=== PATIENT | male | born 1930 | race Caucasian/White ===

== ENCOUNTER 2017-01-14 15:35 | Inpatient (IN) ==
[2017-01-14] MEDS ORDERED: ZOFRAN IV PRN (17:30)
[2017-01-14 18:13] LABS: HEMATOCRIT 40.4 % (42.0-52.0); HEMOGLOBIN 13.4 g/dL (14.0-18.0); MCH 29.5 PG (27-31); MCHC 33.2 g/dL (33-37); MCV 88.8 FL (81-99); MPV 10.1 FL (7.4-10.4); RBC 4.55 XMIL (4.7-6.1)
[2017-01-14] MEDS: ROCEPHIN 1 GM/NS 1 GM/50 ML IVPB IV SCH (18:14)
[2017-01-14] MEDS: NS 1,000 ML IV SCH (18:14)
[2017-01-14 18:35] LABS: ALBUMIN 3.4 g/dL (3.5-5.0); CALCIUM 9.4 mg/dL (8.8-10.2); POTASSIUM 3.6 mmol/L (3.5-5.1); TOTAL BILIRUBIN 0.4 mg/dL (0.20-1.00); TOTAL PROTEIN 7.1 g/dL (6.3-8.3)
[2017-01-14] MEDS: ARICEPT PO SCH (20:42)
[2017-01-14] MEDS: SEROQUEL PO SCH (20:43)
[2017-01-14 22:32] LABS: URINE CULTURE PL NEEDED? NO
[2017-01-14 22:34] LABS: BILIRUBIN URINE NEGATIVE (NEGATIVE); BLOOD URINE NEGATIVE (NEGATIVE); CLARITY CLEAR (CLEAR); COLOR YELLOW; GLUCOSE URINE NEGATIVE (NEGATIVE); LEUKOCYTES URINE NEGATIVE (NEGATIVE); NITRITE URINE NEGATIVE (NEGATIVE); PH URINE 6.5; PROTEIN URINE NEGATIVE (NEGATIVE); SP GRAVITY URINE 1.005; UROBILINOGEN URINE 1+(1 mg/dL)
[2017-01-14 22:35] LABS: URINE SOURCE CLEAN CATCH
[2017-01-14 22:54] LABS: URINE EPITHELIAL CELLS <10 /HPF (<10); URINE RBC <10 /HPF (<10); URINE WBC <10 /HPF (<10)
[2017-01-15] MEDS: PRILOSEC PO SCH (06:05)
[2017-01-15] MEDS: NS 1,000 ML IV SCH ×2 (06:06→19:30)
[2017-01-15 06:45] LABS: HEMATOCRIT 40.3 % (42.0-52.0); HEMOGLOBIN 13.5 g/dL (14.0-18.0); MCH 29.9 PG (27-31); MCHC 33.5 g/dL (33-37); MCV 89.4 FL (81-99); MPV 10.2 FL (7.4-10.4); RBC 4.51 XMIL (4.7-6.1)
[2017-01-15 06:52] LABS: AGAP 11; ALKALINE PHOSPHATASE 69 U/L (32-122); BUN 19 mg/dL (8-22); CALCIUM 9.3 mg/dL (8.8-10.2); CHLORIDE 103 mmol/L (98-107); COSMO 280; GOT 14 U/L (10-34); GPT 8 U/L (10-44); MAGNESIUM 1.9 mg/dL (1.5-2.7); POTASSIUM 3.5 mmol/L (3.5-5.1); SODIUM 139 mmol/L (136-145); TCO2 25 mmol/L (25-35); TOTAL PROTEIN 6.7 g/dL (6.3-8.3)
--- NOTE | 2017-01-15 07:17 | Diag Imaging Result Doc PS360 ---
EXAM: CHEST-PORTABLE HISTORY: short of breath TECHNIQUE: Erect AP portable at 0603 COMMENT: The inspiration is suboptimal. There is atelectasis or pneumonia in the right lower lobe. There are no previous studies. The heart size is at the upper limits of normal. There is fluid or fibrosis in the right costophrenic sulcus. There is a calcified granuloma in the right upper lobe. 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 IMPRESSION: Atelectasis versus pneumonia right lower lobe with pleural fibrosis versus loculated effusion on the right. Advise comparison with previous studies and follow-up if indicated. Electronically signed by Mario Hart 01/15/2017 7:15 AM
[2017-01-15] MEDS: VASOTEC PO SCH (08:50)
[2017-01-15] MEDS: CELEXA PO SCH (08:50)
[2017-01-15] MEDS: DOXYCYCLINE PO SCH ×2 (08:50→22:16)
[2017-01-15] MEDS: ASPIRIN EC PO SCH (08:50)
[2017-01-15] MEDS: LASIX PO SCH (08:50)
--- NOTE | 2017-01-15 11:39 | PROGRESS NOTE ---
DATE: 01/15/2017 SUBJECTIVE: Patient without any changes. PHYSICAL: Temp 98 degrees, pulse 57, respiratory rate 18, BP 149/68, sat 98% on room air.General: Patient is awake, alert. He is disoriented. He is pleasant in nature. He is in no respiratory distress. Neck: Supple. CV: Regular rate. Chest: Decreased breath sounds but equal. Abdomen: Soft. Extremities: Moves all extremities. Trace edema. DIAGNOSTIC DATA: Hemoglobin and hematocrit 13 and 40. Creatinine 1.1. Albumin 3.0. ASSESSMENT: 1. Mild protein calorie malnutrition. 2. Acute renal failure resolved. 3. Abnormal chest x-ray. Certainly could be pneumonia given his current clinical symptoms. We will continue Rocephin. 4. Metabolic encephalopathy appears improving. 5. Urinary tract infection. For some reason, lab cancelled his UA. Will continue Rocephin to treat his pneumonia as well as UTI. PLAN: We will add doxycycline in addition to the Rocephin to attempt to treat his current pneumonia. We will continue physical therapy. Discussed with the at this point I certainly expect he is going to need wound therapy to assist with his decubitus ulcers and probably rehab as well. She agrees and wishes to look for a place near [place] which would be care home between her and his children. cc: Dallas Castillo MD
--- NOTE | 2017-01-15 13:53 | HISTORY AND PHYSICAL ---
CHIEF COMPLAINT: Altered mental status. HISTORY OF PRESENT ILLNESS: The patient is an 86-year-old male, who has a known history of Alzheimer's type dementia. His has been attempting to care for him at home but this has become more difficult as of late. She notes he is having increased falling, increased cough and shortness of breath, increased dyspnea on exertion. He has had a decreased oral intake. She notes that he has had some pressure ulcers on his buttocks. He has not been drinking very well. Has had a decreased urination. REVIEW OF SYSTEMS: Unobtainable, given Mr. Jamilah milian. PAST MEDICAL HISTORY: 1. Alzheimer's type dementia. 2. Situational depression, secondary to dementia. 3. Hypertension. 4. Chronic reflux. FAMILY HISTORY: Noncontributory. SOCIAL HISTORY: Patient lives at home. 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 Does not smoke or drink. He is . His children live in the [facility], [place]. ALLERGIES: No known drug allergies. MEDICATIONS: 1. Aspirin. 2. Aricept 10. 3. Celexa 20. 4. Prilosec 20. 5. Toprol 25. 6. Lasix 40. 7. Enalapril 20. 8. Klonopin 0.5 b.i.d. p.r.n. PHYSICAL EXAMINATION: VITAL SIGNS: Temperature 98.6, pulse 72, respiratory rate 18, blood pressure 101/43, sat 98% on room air. GENERAL: Patient is awake, alert. He is disoriented to time, person, and place. HEENT: Normocephalic, atraumatic. Pupils equal, round, and reactive to light and accommodation. NECK: Supple. CARDIOVASCULAR: Regular rate. CHEST: Clear, but decreased breath sounds bilaterally. Poor effort. No appreciable wheezes. No appreciable crackles. ABDOMEN: Soft, obese, nondistended. EXTREMITIES: Moves all extremities. NEUROLOGIC: No changes. LABS: Hemoglobin and hematocrit 13 and 40. Creatinine 1.4. Albumin 3.4. ASSESSMENT: 1. Acute renal failure. Patient's baseline creatinine is around 1. He is currently at 1.4. 2. Volume depletion. Patient has had a decreased oral intake. 3. Acute metabolic encephalopathy. Certainly may be secondary to his volume depletion or to a urinary tract infection. We will treat him for urinary tract infection and follow. 4. Shortness of breath with dyspnea on exertion. Certainly concerned that patient may have an early pneumonia. 5. Decubitus ulcers of various stages of healing on his buttocks. 6. Frequent falls. 7. Alzheimer's type dementia. 8. Hypertension. Will hold patient's Toprol, as this certainly could be increasing his risk of falls. 9. Situational depression. We will continue Celexa for now. We will stop Ativan and follow. PLAN: As noted above. We will admit patient to the hospital. Get physical therapy involved. We will place him on Rocephin and continue to follow. cc: Dallas Castillo MD
[2017-01-15] MEDS: ROCEPHIN 1 GM/NS 1 GM/50 ML IVPB IV SCH (17:19)
[2017-01-15] MEDS: SEROQUEL PO SCH (22:16)
[2017-01-15] MEDS: ARICEPT PO SCH (22:17)
[2017-01-16] MEDS: TYLENOL PO PRN ×2 (00:44→21:52)
[2017-01-16] MEDS: PRILOSEC PO SCH (06:20)
[2017-01-16] MEDS: VASOTEC PO SCH (08:23)
[2017-01-16] MEDS: DOXYCYCLINE PO SCH ×2 (08:23→21:52)
[2017-01-16] MEDS: LASIX PO SCH (08:24)
[2017-01-16] MEDS: NS 1,000 ML IV SCH ×2 (08:24→11:20)
[2017-01-16] MEDS: CELEXA PO SCH (08:24)
[2017-01-16] MEDS: ASPIRIN EC PO SCH (08:24)
[2017-01-16] MEDS: ROCEPHIN 1 GM/NS 1 GM/50 ML IVPB IV SCH (17:40)
[2017-01-16] MEDS: SEROQUEL PO SCH (21:52)
[2017-01-16] MEDS: ARICEPT PO SCH (21:52)
[2017-01-17] MEDS: NS 1,000 ML IV SCH (05:08)
[2017-01-17] MEDS: PRILOSEC PO SCH (06:34)
[2017-01-17] MEDS: VASOTEC PO SCH (09:34)
[2017-01-17] MEDS: LASIX PO SCH (09:34)
[2017-01-17] MEDS: ASPIRIN EC PO SCH (09:34)
[2017-01-17] MEDS: DOXYCYCLINE PO SCH ×2 (09:34→21:15)
[2017-01-17] MEDS: CELEXA PO SCH (09:34)
--- NOTE | 2017-01-17 10:05 | Diag Imaging Result Doc PS360 ---
EXAM: CHEST-2 VIEWS INDICATION: hypoxia TECHNIQUE: 2 views COMPARISON: 01/15/2017 FINDINGS: The atelectasis and/or infiltrate at the right lung base is essentially unchanged. There is a small pleural effusion versus chronic pleural scarring at the right lung base that is also essentially stable. No new consolidation is appreciated. Cardiac silhouette is stable. IMPRESSION: Essentially stable chest. Electronically signed by George Resendez 01/17/2017 10:03 AM
[2017-01-17] MEDS: OMNICEF PO SCH ×2 (10:35→21:15)
--- NOTE | 2017-01-17 12:02 | PROGRESS NOTE ---
DATE: 01/16/2017 SUBJECTIVE: The patient is without complaints. He is lying in bed. He denies any current issues. OBJECTIVE: Vital Signs: On physical, temp 97.6, pulse 60, respiratory rate 18, BP 133/59, satting 96% on room air. General: The patient is awake, alert. He is currently in no respiratory distress. He is pleasant to talk with. He is confused. HEENT: Normocephalic, atraumatic. Neck: Supple. CV: Regular rate. Chest: Clear, nonlabored. Abdomen: Soft. Extremities: Moves all extremities. LABS: No current labs. ASSESSMENT: 1. Acute renal failure secondary to volume depletion, resolved. 2. Volume depletion, resolved. 3. Decubitus ulcers, improved. We will continue wound therapy. 4. Pneumonia appears improving. Will continue current antibiotics. PLAN: As noted we will continue his current antibiotics for his pneumonia. We will continue IV fluids. We will continue to follow. Certainly expect that he will need rehabilitation. We will continue wound therapy for his decubitus ulcers and continue to encourage p.o. cc: Dallas Castillo MD
--- NOTE | 2017-01-17 12:12 | PROGRESS NOTE ---
DATE: 01/17/2017 SUBJECTIVE: The patient is without any new complaints. He is getting ready to breakfast. He is sitting in the chair. He is in no distress. OBJECTIVE: Vital Signs: Reviewed. Temperature 97.6 degrees, pulse 66, respiratory rate 18, BP 133/59, satting 96% on room air. General: The patient is awake and alert. He is disoriented, but pleasant to talk with. HEENT: Normocephalic, atraumatic. RAJAT. Neck: Supple. CV: Regular rate. Chest: Clear. Abdomen: Soft. Extremities: Moves all extremities. Neurologic: No changes. LABS: No current labs. ASSESSMENT: 1. Volume depletion, resolved. 2. Acute renal failure, resolved. 3. Decubitus ulcer, stable. 4. Right lower lobe pneumonia. We will convert to Omnicef and doxycycline oral. 5. Chronic dementia, stable. PLAN: We will recheck chest x-ray. Saline lock. Change him over to p.o. antibiotics. Continue his home medications. Recheck his labs in the a.m. Continue physical therapy and await rehabilitation as patient is unsafe to discharge home. cc: Dallas Castillo MD
[2017-01-17] MEDS: SEROQUEL PO SCH (21:15)
[2017-01-17] MEDS: ARICEPT PO SCH (21:15)
[2017-01-18] MEDS: TYLENOL PO PRN ×3 (02:59→21:53)
[2017-01-18 06:13] LABS: HEMATOCRIT 36.4 % (42.0-52.0); HEMOGLOBIN 12.1 g/dL (14.0-18.0); MCH 29.1 PG (27-31); MCHC 33.2 g/dL (33-37); MCV 87.5 FL (81-99); MPV 10.3 FL (7.4-10.4); RBC 4.16 XMIL (4.7-6.1)
[2017-01-18] MEDS: PRILOSEC PO SCH (06:21)
[2017-01-18 06:31] LABS: AGAP 10; ALBUMIN 2.9 g/dL (3.5-5.0); ALKALINE PHOSPHATASE 75 U/L (32-122); BUN 21 mg/dL (8-22); CHLORIDE 103 mmol/L (98-107); COSMO 281; GOT 13 U/L (10-34); GPT 9 U/L (10-44); MAGNESIUM 1.5 mg/dL (1.5-2.7); POTASSIUM 3.4 mmol/L (3.5-5.1); SODIUM 139 mmol/L (136-145); TCO2 27 mmol/L (25-35); TOTAL PROTEIN 6.3 g/dL (6.3-8.3)
[2017-01-18] MEDS: OMNICEF PO SCH ×2 (09:34→21:53)
[2017-01-18] MEDS: DOXYCYCLINE PO SCH ×2 (09:34→21:53)
[2017-01-18] MEDS: ASPIRIN EC PO SCH (09:35)
[2017-01-18] MEDS: VASOTEC PO SCH (09:35)
[2017-01-18] MEDS: LASIX PO SCH (09:35)
[2017-01-18] MEDS: CELEXA PO SCH (09:35)
--- NOTE | 2017-01-18 15:37 | PROGRESS NOTE ---
DATE: 01/18/2017 SUBJECTIVE: Patient without complaints. Notes that he is still tired but has difficulty getting up on his own. He is lying in the bed. He spends most of the day in the bed. PHYSICAL: Temp 98.3 degrees, pulse 78, respiratory rate 18, BP 123/46.General: Patient is awake, alert, currently in no respiratory distress. Pleasant to talk with. He is easily confused and disoriented. HEENT: Normocephalic, atraumatic. RAJAT. Neck: Supple. CV: Regular rate. Chest: Clear. ASSESSMENT: 1. Acute metabolic encephalopathy resolved. 2. Acute volume depletion resolved. 3. Dementia. 4. Hypertension. 5. Pneumonia. 6. Adult failure to thrive. PLAN: We will convert over to p.o. antibiotics. Patient is currently improved. We will continue physical therapy. He certainly will need rehab. Hopefully his right lower lobe pneumonia will continue to improve with antibiotics. cc: Dallas Castillo MD
[2017-01-18] MEDS: ARICEPT PO SCH (21:53)
[2017-01-18] MEDS: SEROQUEL PO SCH (21:53)
[2017-01-19] MEDS: PRILOSEC PO SCH (06:18)
[2017-01-19] MEDS: ASPIRIN EC PO SCH (09:24)
[2017-01-19] MEDS: LASIX PO SCH (09:24)
[2017-01-19] MEDS: VASOTEC PO SCH (09:24)
[2017-01-19] MEDS: DOXYCYCLINE PO SCH ×2 (09:24→21:27)
[2017-01-19] MEDS: CELEXA PO SCH (09:24)
[2017-01-19] MEDS: OMNICEF PO SCH ×2 (09:24→21:28)
--- NOTE | 2017-01-19 15:19 | PROGRESS NOTE ---
DATE: 01/19/2017 SUBJECTIVE: Patient without any new complaints. PHYSICAL: Vital signs: Temperature 98, pulse 69, respiratory rate 18, BP 148/75, saturation 96% on room air. General: Patient is awake, alert, currently no respiratory distress. He is oriented to person but otherwise disoriented. HEENT: Normocephalic, atraumatic. Neck: Supple. CV: Regular rate. Chest: Clear. Abdomen: Soft. LABS: No current labs. ASSESSMENT: 1. Acute metabolic encephalopathy resolved. Patient is his baseline mental status. 2. Dementia. 3. Hypertension. 4. Pneumonia improving. 5. Adult failure to thrive. PLAN: Will continue patient on his current medications. Will convert to p.o. and plans of him discharging to rehab when available. cc: Dallas Castillo MD
[2017-01-19] MEDS: TYLENOL PO PRN (21:27)
[2017-01-19] MEDS: SEROQUEL PO SCH (21:27)
[2017-01-19] MEDS: ARICEPT PO SCH (21:27)
[2017-01-20] MEDS: PRILOSEC PO SCH (06:22)
[2017-01-20] MEDS: ASPIRIN EC PO SCH (09:26)
[2017-01-20] MEDS: DOXYCYCLINE PO SCH ×2 (09:26→20:42)
[2017-01-20] MEDS: CELEXA PO SCH (09:26)
[2017-01-20] MEDS: LASIX PO SCH (09:27)
[2017-01-20] MEDS: VASOTEC PO SCH (09:27)
[2017-01-20] MEDS: OMNICEF PO SCH ×2 (09:27→20:42)
[2017-01-20] MEDS: SEROQUEL PO SCH (20:42)
[2017-01-20] MEDS: TYLENOL PO PRN (20:42)
[2017-01-20] MEDS: ARICEPT PO SCH (20:42)
[2017-01-21] MEDS: PRILOSEC PO SCH (06:32)
[2017-01-21] MEDS: VASOTEC PO SCH (09:32)
[2017-01-21] MEDS: LASIX PO SCH (09:32)
[2017-01-21] MEDS: ASPIRIN EC PO SCH (09:33)
[2017-01-21] MEDS: DOXYCYCLINE PO SCH ×3 (09:33→22:50)
[2017-01-21] MEDS: CELEXA PO SCH (09:33)
[2017-01-21] MEDS: OMNICEF PO SCH ×3 (09:33→22:50)
--- NOTE | 2017-01-21 09:51 | DISCHARGE SUMMARY ---
ADMISSION DATE: 01/14/2017 DISCHARGE DATE: 01/20/2017 DISCHARGE DIAGNOSES: 1. Acute metabolic encephalopathy, resolved, secondary to pneumonia. 2. Pneumonia, improving. 3. Adult failure to thrive. 4. Hypertension. 5. Dementia. 6. Situational depression. 7. Chronic reflux. 8. Decubitus ulcers in various stages of healing on his buttocks bilaterally. 9. Frequent falls. CONSULTATIONS: None. PROCEDURES: None. BRIEF HOSPITAL COURSE: Patient is an 86-year-old male, who has a known history of dementia, presented to the office and subsequently admitted secondary to pneumonia. Was placed on antibiotics which he tolerated well. On discharge, he is awake, alert. He is disoriented but at his baseline. His mental status has improved somewhat as he was confused when he was initially admitted. After treating his pneumonia with IV antibiotics the confusion returned back to his baseline. Currently is on p.o. antibiotics and is doing well. DISPOSITION: The patient will be discharged to rehab. Certainly he is becoming a danger to himself and too much for his elderly to be able to handle at home. We will continue his medications as noted. We will continue antibiotics for a total of 4 more days. Further orders as needed. TIME SPENT: 35 minutes were spent in discharge planning. cc: Dallas Castillo MD
--- NOTE | 2017-01-21 11:41 | PROGRESS NOTE ---
DATE: 01/21/2017 SUBJECTIVE: Patient without any new complaints. OBJECTIVE: Physical Examination: Vital Signs: Temperature 97, pulse 84, respiratory rate 16, BP 141/61, saturation 96% on room air. General: Patient is awake, alert. He is disoriented but he is in no respiratory distress. Neck: Supple. CV: Regular rate. Chest: Clear. Abdomen: Soft. Labs: No current labs. ASSESSMENT: 1. Dementia. 2. Adult failure to thrive. 3. Pneumonia, improving. 4. Others. PLAN: We will continue to keep patient in the hospital until he can be transferred to rehab. cc: Dallas Castillo MD
[2017-01-21] MEDS: SEROQUEL PO SCH ×2 (19:53→22:50)
[2017-01-21] MEDS: ARICEPT PO SCH ×2 (19:54→22:50)
[2017-01-22] MEDS: PRILOSEC PO SCH (06:12)
[2017-01-22] MEDS: DOXYCYCLINE PO SCH ×2 (08:16→20:47)
[2017-01-22] MEDS: LASIX PO SCH (08:16)
[2017-01-22] MEDS: CELEXA PO SCH (08:16)
[2017-01-22] MEDS: OMNICEF PO SCH ×2 (08:16→20:45)
[2017-01-22] MEDS: ASPIRIN EC PO SCH (08:16)
[2017-01-22] MEDS: VASOTEC PO SCH (08:17)
[2017-01-22] MEDS: SEROQUEL PO SCH (20:45)
[2017-01-22] MEDS: ARICEPT PO SCH (20:45)
[2017-01-23] MEDS: TYLENOL PO PRN (01:34)
[2017-01-23] MEDS: PRILOSEC PO SCH (06:45)
[2017-01-23] MEDS: ASPIRIN EC PO SCH (08:08)
[2017-01-23] MEDS: OMNICEF PO SCH ×2 (08:08→20:49)
[2017-01-23] MEDS: DOXYCYCLINE PO SCH ×2 (08:08→20:50)
[2017-01-23] MEDS: CELEXA PO SCH (08:08)
[2017-01-23] MEDS: VASOTEC PO SCH (08:09)
[2017-01-23] MEDS: LASIX PO SCH (08:12)
--- NOTE | 2017-01-23 09:48 | PROGRESS NOTE ---
DATE: 01/23/2017 SUBJECTIVE: The patient is lying flat on the bed. He is in no distress. PHYSICAL EXAMINATION: Vital Signs: Reviewed. Temperature 98 degrees, pulse 67, respiratory 16, BP 126/052 to 147/65, oxygen saturation 98% on room air. General: Patient is awake, alert. He is currently in no respiratory distress. HEENT: Normocephalic, atraumatic. RAJAT. Neck: Supple. CV: Regular rate. Chest: Clear. Abdomen: Soft. Extremities: Moves all extremities. Neurologic: No changes. ASSESSMENT: 1. Dementia, likely Alzheimer's type. 2. Acute metabolic encephalopathy secondary to pneumonia, resolved. 3. Pneumonia, improved. 4. Adult failure to thrive. 5. Hypertension, stable. PLAN: We will continue to await patient's insurance approval for rehabilitation. Further orders as needed. cc: Dallas Castillo MD
--- NOTE | 2017-01-23 10:01 | PROGRESS NOTE ---
DATE: 01/23/2017 SUBJECTIVE: Patient without any new complaints. PHYSICAL EXAMINATION: Vital Signs: Reviewed and stable. Temperature 97.5 degrees, pulse 82, respiratory rate 18, BP 111/47, oxygen saturation 98% on room air. General: Patient is awake, alert, lying flat in the bed. He is easily awakened. Neck: Supple. CV: Regular rate. Chest: Clear. Abdomen: Soft. Extremities: Moves all extremities. Neurologic: No changes. ASSESSMENT: 1. Pneumonia improving. Will change to p.o. 2. Failure to thrive. 3. Chronic dementia. 4. Others. PLAN: We will continue patient in the hospital. We will discuss with social insurance analyst the possibility of transfer to rehab. a Further orders as needed. cc: Dallas Castillo MD
[2017-01-23] MEDS: ARICEPT PO SCH (20:50)
[2017-01-23] MEDS: SEROQUEL PO SCH (21:00)
[2017-01-24] MEDS: PRILOSEC PO SCH (06:04)
[2017-01-24] MEDS: VASOTEC PO SCH (09:25)
[2017-01-24] MEDS: CELEXA PO SCH (09:26)
[2017-01-24] MEDS: ASPIRIN EC PO SCH (09:26)
[2017-01-24] MEDS: OMNICEF PO SCH ×2 (09:26→20:25)
[2017-01-24] MEDS: DOXYCYCLINE PO SCH ×2 (09:26→20:25)
[2017-01-24] MEDS: LASIX PO SCH (09:27)
--- NOTE | 2017-01-24 15:09 | PROGRESS NOTE ---
DATE: 01/24/2017 SUBJECTIVE: This patient has no complaints. He states he is feeling better today. He denies chest pain, any GI or issues. OBJECTIVE/PHYSICAL EXAMINATION: Vital Signs: Blood pressure is 119/60 with a heart rate of 69, respirations are 18, temperature is 98 degrees oral with room air saturations of 97-99%. Cardiovascular: Regular rate and rhythm. S1, S2 appreciated. Pulmonary: Breath sounds are clear. No increased work of breathing noted. Gastrointestinal: Abdomen is soft, nontender, nondistended with bowel sounds in all 4 quadrants. Extremities: No clubbing, cyanosis, or edema. Pulses are palpable x4. Calves are nontender. Neurologic: He is alert and oriented with cranial nerves 2-12 grossly intact. ASSESSMENT: 1. Pneumonia, improving. We will continue with Omnicef. 2. Failure to thrive. 3. Chronic dementia. 4. Situational depression. 5. Chronic reflux. 6. Decubitus ulcers in various stages of healing on his buttocks bilaterally. 7. Frequent falls. PLAN: We will continue with the current care. His current medical regimen. Of note, next disposition, we are awaiting insurance approval for rehab. The patient does have a bed at [facility]. Dictated by SADIE Barnhart for Dallas Castillo MD cc: SADIE Barnhart MD
[2017-01-24] MEDS: SEROQUEL PO SCH (20:25)
[2017-01-24] MEDS: ARICEPT PO SCH (20:25)
[2017-01-25] MEDS: PRILOSEC PO SCH (06:04)
[2017-01-25] MEDS: VASOTEC PO SCH (08:43)
[2017-01-25] MEDS: OMNICEF PO SCH ×2 (08:44→20:11)
[2017-01-25] MEDS: CELEXA PO SCH (08:44)
[2017-01-25] MEDS: ASPIRIN EC PO SCH (08:44)
[2017-01-25] MEDS: DOXYCYCLINE PO SCH ×2 (08:44→20:11)
[2017-01-25] MEDS: LASIX PO SCH (08:44)
--- NOTE | 2017-01-25 16:13 | PROGRESS NOTE ---
DATE: 01/25/2017 SUBJECTIVE: The patient is without any new complaints. He states that he is feeling fine. He denies any fever or chills. He denies any cough or congestion. OBJECTIVE: Vital Signs: Reviewed. Temperature 97, pulse 90-108, respiratory rate 18, and BP 138/76, and saturation 99% on room air. General: The patient is awake, alert, and currently in no respiratory distress. Pleasant to talk with. HEENT: Normocephalic. Neck: Supple. CV: Regular rate. Chest: Clear. rhonchi. No crackles. No wheezing. Abdomen: Soft. Extremities: He moves all extremities. Neuro: No changes. ASSESSMENT: 1. Acute metabolic encephalopathy, resolved. 2. Pneumonia, improving. 3. Dementia, stable. 4. Hypertension. 5. Adult failure to thrive. PLAN: We will continue to follow the patient. He will need further inpatient rehab to continue strengthening. cc: Dallas Castillo MD
[2017-01-25] MEDS ORDERED: ZOFRAN ODT PO PRN (16:57)
[2017-01-25] MEDS: LACTULOSE PO SCH (20:11)
[2017-01-25] MEDS: ARICEPT PO SCH (20:11)
[2017-01-25] MEDS: SEROQUEL PO SCH (20:11)
[2017-01-26] MEDS: PRILOSEC PO SCH (06:03)
[2017-01-26 06:42] LABS: HEMATOCRIT 45.4 % (42.0-52.0); MCH 29.1 PG (27-31); MPV 10.8 FL (7.4-10.4); RBC 5.16 XMIL (4.7-6.1)
[2017-01-26 07:17] LABS: ALBUMIN 3.3 g/dL (3.5-5.0); CALCIUM 9.7 mg/dL (8.8-10.2); MAGNESIUM 1.9 mg/dL (1.5-2.7); POTASSIUM 3.6 mmol/L (3.5-5.1); TOTAL BILIRUBIN 0.6 mg/dL (0.20-1.00); TOTAL PROTEIN 7.3 g/dL (6.3-8.3)
[2017-01-26] MEDS ORDERED: NS 1,000 ML IV SCH (07:20)
--- NOTE | 2017-01-26 08:30 | Diag Imaging Result Doc PS360 ---
EXAM: CHEST-2 VIEWS INDICATION: hypoxia TECHNIQUE: 2 views COMPARISON: 01/17/2017 FINDINGS: There is evidence of prior granulomatous disease. A small right pleural effusion versus chronic pleural thickening with adjacent atelectasis and/or infiltrate at the right lung base is essentially stable. No new consolidation is appreciated. Cardiac silhouette is stable. IMPRESSION: Stable chest. Electronically signed by George Resendez 01/26/2017 8:27 AM
[2017-01-26] MEDS: CELEXA PO SCH (09:03)
[2017-01-26] MEDS: ASPIRIN EC PO SCH (09:03)
[2017-01-26] MEDS: OMNICEF PO SCH ×2 (09:03→20:27)
[2017-01-26] MEDS: DOXYCYCLINE PO SCH ×2 (09:04→20:27)
[2017-01-26] MEDS: VASOTEC PO SCH (09:04)
[2017-01-26] MEDS: LACTULOSE PO SCH ×2 (09:08→20:28)
--- NOTE | 2017-01-26 09:57 | PROGRESS NOTE ---
DATE: 01/26/2017 SUBJECTIVE: Patient without any new complaints today. OBJECTIVE: Vital Signs: Reviewed. Temperature 98 degrees, pulse 89, respiratory rate 18, BP 117/51, saturation 97% on room air. General: Patient is awake, alert. He is in no respiratory distress. He is able to ambulate in the ye with physical therapy. HEENT: Normocephalic, atraumatic. Neck: Supple. CV: Regular rate. Chest: Clear. Abdomen: Soft. DIAGNOSTIC STUDIES: Chest x-ray improved. ASSESSMENT: 1. Acute renal failure. BUN and creatinine both have climbed. Patient has been on Lasix. We will stop this. Will not restart IV fluids at the present time but will stop his Lasix. 2. Mild protein calorie malnutrition. 3. Pneumonia, improved. 4. Adult failure to thrive. PLAN: As noted, stop Lasix. Continue to follow. Further orders as needed. Hopefully to rehab soon. cc: Dallas Castillo MD
[2017-01-26] MEDS ORDERED: SEROQUEL PO ONE (10:38)
[2017-01-26] MEDS: ARICEPT PO SCH (20:27)
[2017-01-26] MEDS: SEROQUEL PO SCH (20:28)
[2017-01-27] MEDS: PRILOSEC PO SCH (06:05)
--- NOTE | 2017-01-27 08:12 | PROGRESS NOTE ---
DATE: 01/27/2017 SUBJECTIVE: Patient without any new complaints. He is sitting up in the chair. OBJECTIVE: Vital signs: Temperature 97, pulse 70, respiratory rate 18, BP 110/57, saturating 97% on room air. General: Patient is awake, alert, in no respiratory distress. Neck: Supple. CV: Regular rate. Chest: Clear. Abdomen: Soft. Extremities: Moves all extremities. ASSESSMENT: 1. Adult failure to thrive. 2. Dementia. 3. Pneumonia, improved. 4. Mild protein calorie malnutrition. 5. Acute renal failure due to volume depletion. 6. Volume depletion secondary to Lasix. This was stopped. PLAN: We will continue to follow. cc: Dallas Castillo MD
[2017-01-27] MEDS: OMNICEF PO SCH ×2 (08:15→21:15)
[2017-01-27] MEDS: ASPIRIN EC PO SCH (08:16)
[2017-01-27] MEDS: VASOTEC PO SCH (08:16)
[2017-01-27] MEDS: CELEXA PO SCH (08:16)
[2017-01-27] MEDS: DOXYCYCLINE PO SCH ×2 (08:17→21:15)
[2017-01-27] MEDS: SEROQUEL PO SCH (21:00)
[2017-01-27] MEDS: ARICEPT PO SCH (21:15)
[2017-01-28] MEDS: PRILOSEC PO SCH (06:21)
[2017-01-28] MEDS: ASPIRIN EC PO SCH (08:05)
[2017-01-28] MEDS: VASOTEC PO SCH (08:05)
[2017-01-28] MEDS: OMNICEF PO SCH (08:05)
[2017-01-28] MEDS: CELEXA PO SCH (08:05)
[2017-01-28] MEDS: DOXYCYCLINE PO SCH (08:05)
[2017-01-28] MEDS ORDERED: NAMENDA PO SCH (09:00)
[2017-01-28 16:07] VITALS: BP 112/64
--- NOTE | 2017-02-01 17:02 | DISCHARGE SUMMARY ---
ADMISSION DATE: 01/14/2017 DISCHARGE DATE: 01/28/2017 DISCHARGE DIAGNOSES: 1. Adult failure to thrive. 2. Acute metabolic encephalopathy resolved secondary to left lower lobe pneumonia. 3. Left lower lobe pneumonia. 4. Chronic Alzheimer's type dementia. 5. Situational depression. 6. Hypertension. 7. Volume depletion resolved. 8. Adult failure to thrive. 9. Frequent falls. 10. Decubitus ulcers on his buttocks in various stages of healing. CONSULTATIONS: None. PROCEDURES: None. BRIEF HOSPITAL COURSE: Patient is an 86-year-old male, who was admitted as noted on the HPI. Treated in the usual fashion. He was diagnosed with left lower lobe pneumonia and volume depletion. Thankfully he had an uneventful medical hospital course. He unfortunately has adult failure to thrive, frequent falls and is unable to adjust himself in the chair and therefore has developed decubitus ulcerations on his buttocks at home. Mr. Askew unfortunately cannot adequately care for himself and his is having a great difficulty caring for him at home. However his insurance company felt as though he was safe to go home even though Mr. Askew has fallen multiple times and is unable to assist in any of his activities of daily living. Multiple appeals were attempted to get his insurance company to approve a short-term rehab stay however they declined each appeal. DISPOSITION: Unfortunately due to his insurance company's denial of rehab, Mr. Askew will be discharged home with his . This is a very poor living condition and certainly would expect Mr. Askew to have a very high readmission to the hospital. We will continue his home medications. He has been on antibiotics and has fully treated his pneumonia, his breathing is better. He is back to his baseline mental status. TIME SPENT: 45 minutes were spent in discharge planning and instructions. cc: Dallas Castillo MD
== END 2017-01-28 16:50 | disposition home health service (06) ==
LOC: SUATTDRO 15:35 → P.DIRADM 15:35 → P.MEDSURG 15:39
PROVIDERS: ADMIT Family Medicine; ATTEND Family Medicine